=== PATIENT | male | born 1930 | race Caucasian/White ===

== ENCOUNTER → 2016-12-16 | Outpatient (CLI) | payer MEDICARE, OTHER ==
[~2016-12-16] MED LIST: ATENOLOL25 MG PO; CORICIDIN HB1 TABLET PO; FISH OIL 1,2001 EAC4 PO; LEVAQUIN750 MG PO; PRAVASTATIN SOD20 MG PO; TYLENOL EXTRA500 MG PO; VICKS DAYQUIL-1 EACH PO
== END | disposition home or self-care (01) ==
LOC: CDC 14:15
DX: I45.10 Unspecified right bundle-branch block (principal); M75.41 Impingement syndrome of right shoulder; M25.511 Pain in right shoulder
CPT/HCPCS: 93000

== ENCOUNTER 2017-01-19 22:36 | Observation (INO) | payer OTHER ==
[~2017-01-19] VITALS: Ht 182.9 cm; Wt 102.5 kg
[2017-01-19 23:03] LABS: HEMATOCRIT 37.6 % (38.0-50.0); MCH 32.3 PG (29.0-34.0); MCHC 31.6 G/DL (30.0-36.0); MCV 102.2 FL (86-99); MEAN PLAT.VOLUME 10.1 uM^3 (9.0-12.4); PLATELET COUNT 179 K/uL (156-360); RBC DIS.WIDTH-CV 13.1 % (11.8-14.6); RBC DIS.WIDTH-SD 49.5 % (39-53); RED BLOOD COUNT 3.68 M/uL (4.00-5.50); WHITE BLOOD COUNT 6.9 K/uL (4.1-10.2)
[2017-01-19 23:19] LABS: CHLORIDE 106 mEq/L (99-109); SODIUM 139 mEq/L (136-147)
[2017-01-19 23:20] LABS: GLUCOSE 171 mg/dL (70-99)
[2017-01-19 23:22] LABS: ANION GAP 11 MEQ/L (2-14)
[2017-01-19 23:24] LABS: GFR ESTIMATE (CALCULATED) 56 mL/min/
[2017-01-19 23:25] LABS: UREA NITROGEN (BUN) 25 mg/dL (9-23)
[2017-01-19 23:32] LABS: TROP-I INTERPRETATION NEGATIVE; TROPONIN-I < 0.01 ng/mL (0.0-0.30)
[2017-01-20 00:08] LABS: D-DIMER ELISA 1.11 mg/L FEU (< 0.57)
[2017-01-20 03:31] VITALS: BP 126/66
[2017-01-20] MEDS ORDERED: NEURONTIN400 MG PO (04:00)
[2017-01-20 08:50] VITALS: BP 105/56
[2017-01-20] MEDS ORDERED: ZESTRIL10 MG PO (08:57)
[2017-01-20] MEDS ORDERED: TYLENOL ARTHRI650 MG PO (08:58)
[2017-01-20 10:10] LABS: TROP-I INTERPRETATION NEGATIVE; TROPONIN-I < 0.01 ng/mL (0.0-0.30)
== END 2017-01-20 11:36 | disposition home or self-care (01) ==
LOC: EME 22:36 → 5WEST 01-20 02:27 → EDOF 01-20 02:27 → 5WEST 01-20 03:18
PROVIDERS: Internal Medicine
DX: R07.89 Other chest pain (principal); R00.2 Palpitations; R42 Dizziness and giddiness; I10 Essential (primary) hypertension; E78.5 Hyperlipidemia, unspecified; G89.29 Other chronic pain; M54.2 Cervicalgia
CPT/HCPCS: 70450; 71010; 71275; 80048; 84484; 85027; 85379; 93005; 99281; 99284; G0378; J1644; J7030; J7040